=== PATIENT | female | born 1990 | race African-American/Black ===

== ENCOUNTER 2021-04-21 08:00 | Inpatient (IN) | payer BC ==
[2021-04-22 06:57] VITALS: BMI 26.6
[2021-04-22] MEDS ORDERED: PROPOFOL 20 ML ONE (07:51)
[2021-04-22] MEDS ORDERED: SUCCINYLCHOLINE CHLORIDE 200 MG/10 ML SYRINGE ONE (07:52)
[2021-04-22] MEDS ORDERED: ePHEDrine SULFATE 50 MG/1 ML AMPULE ONE (07:52)
[2021-04-22] MEDS ORDERED: ELECTROLYTE-148 SOLN 500 ML IV ONE (07:55)
[2021-04-22] MEDS ORDERED: CITRIC ACID/SODIUM CITRATE 30 ML UNIT-DOSE CUP PO ONE (07:55)
[2021-04-22] MEDS ORDERED: ELECTROLYTE-148 SOLN 1,000 ML IV SCH (08:00)
[2021-04-22] MEDS ORDERED: morphine SULFATE/Preservative Free 0.5 MG/ML (1cc Syringe) ONE (08:17)
[2021-04-22] MEDS ORDERED: OXYTOCIN 20 UNITS in 0.9% NS 20 UNIT/1,000 ML INFUS.BAG IV ONE (09:46)
[2021-04-22] MEDS ORDERED: ONDANSETRON 4 MG/2 ML VIAL IVPUSH PRN (09:50)
[2021-04-22] MEDS ORDERED: morphine SULFATE/PF 1 MG/2 ML (2cc Syringe - QUVA) EP ONE (09:50)
[2021-04-22] MEDS ORDERED: IBUPROFEN 800 MG/8 ML IJ IVPB PRN (09:58)
[2021-04-22] MEDS ORDERED: ACETAMINOPHEN 325 MG TABLET (FP) PO PRN (09:58)
[2021-04-22] MEDS ORDERED: METHYLERGONOVINE MALEATE 0.2 MG/1 ML AMP IM PRN (09:58)
[2021-04-22] MEDS ORDERED: oxyCODONE HCL 5 MG TABLET PO PRN (09:58)
[2021-04-22] MEDS ORDERED: OXYTOCIN 20 UNITS in 0.9% NS 20 UNIT/1,000 ML INFUS.BAG IV SCH (10:00)
[2021-04-22] MEDS: PRENATAL VITAMINS W/ FOLIC ACID TABLET (FP) PO SCH (16:59)
[2021-04-22] MEDS ORDERED: SENNOSIDES/DOCUSATE COMBO (SENNA PLUS) TABLET (UD) PO PRN (22:00)
[2021-04-23] MEDS: IBUPROFEN 600 MG TABLET (FP) PO PRN ×3 (01:01→21:48)
[2021-04-23] MEDS: SIMETHICONE 80 MG TAB.CHEW (FP) PO PRN ×4 (01:01→21:48)
[2021-04-23] MEDS: PRENATAL VITAMINS W/ FOLIC ACID TABLET (FP) PO SCH (09:46)
[2021-04-23] MEDS ORDERED: BISACODYL 10 MG SUPP.RECT RC PRN (09:58)
[2021-04-23] MEDS: oxyCODONE HCL 5 MG TABLET PO PRN ×2 (11:37→18:34)
[2021-04-23 11:44] LABS: BASO % 0.4 % (0-2.0); EOS % 0.7 % (0-4.5); HEMOGLOBIN 9.4 GM/dL (10.7-15.3); LYMPH % 11.4 % (8-40); MCH 29.3 pg (25.7-33.7); MCHC 33.5 g/dl (32.0-36.0); MEAN CELL VOLUME 87.5 fl (80-96); MEAN PLT VOLUME 9.6 fl (7.5-11.1); MONO % 4.8 % (3.8-10.2); NEUT % 82.7 % (42.8-82.8); PLATELET COUNT 132 10^3/uL (134-434); RDW 15.3 % (11.6-15.6); WHITE BLOOD COUNT 12.2 K/mm3 (4.0-10.0)
[2021-04-24] MEDS: oxyCODONE HCL 5 MG TABLET PO PRN (03:05)
[2021-04-24] MEDS: SIMETHICONE 80 MG TAB.CHEW (FP) PO PRN ×2 (03:06→09:55)
[2021-04-24] MEDS: PRENATAL VITAMINS W/ FOLIC ACID TABLET (FP) PO SCH (09:55)
[2021-04-24] MEDS: IBUPROFEN 600 MG TABLET (FP) PO PRN (09:55)
[2021-04-24 11:24] VITALS: BP 122/61; PULSE 79; TEMP 98.4
== END 2021-04-24 13:00 | disposition home or self-care (01) | DRG 788 ==
LOC: EDBD → JLDR 04-22 06:03 → J3W 04-22 11:19
PROVIDERS: ADMIT Obstetrics & Gynecology; ATTEND Obstetrics & Gynecology
PROC: 10D00Z1 Extraction of Products of Conception, Low, Open Approach (ICD-10-PCS; principal; 2021-04-22)
DX: O34.211 Maternal care for low transverse scar from previous cesarean delivery (principal); Z3A.39 39 weeks gestation of pregnancy; Z37.0 Single live birth
CPT/HCPCS: 36415; 85025; 88307-TC